=== PATIENT | male | born 1975 | race Caucasian/White ===

== ENCOUNTER 2016-08-29 12:25 | Outpatient (CLI) | payer MEDICARE ==
[2016-08-29 12:37] LABS: Hemoglobin 11.8 gm/dl (11.8-15.2); Mean Corpuscular HGB Conc 34 % (32-34); Mean Corpuscular Hemoglobin 29 pg (28-32); Mean Corpuscular Volume 85 fl (84-94); Platelet Count 108 K/mm3 (140-440); Red Cell Distribution Width 13.7 % (13.2-15.2); White Blood Count 6.3 K/mm3 (4.5-11.0)
[2016-08-29 13:02] LABS: Albumin 2.9 g/dL (3.9-5); BUN/Creatinine Ratio 16.77; Calcium 8.2 mg/dL (8.4-10.2); Chloride 98.7 mmol/L (98-107); Phosphorous 4.2 mg/dL (2.5-4.5); Potassium 4.8 mmol/L (3.6-5.0)
[2016-08-29 13:04] LABS: Bilirubin,Urine NEG (Negative); Blood,Urine SM (Negative); Ketones,Urine NEG (Negative); Leukocyte Esterase,Urine NEG (Negative); Mucus,Urine FEW /HPF; Nitrite,Urine NEG (Negative); Urobilinogen,Urine < 2.0 mg/dL (<2.0)
[2016-08-29 13:22] LABS: Protein,Urine >500 mg/dL (Negative)
[2016-08-31 16:29] LABS: Vitamin D, 25-OH, Total 6 ng/mL (30-100)
[2016-09-01 10:14] LABS: Vitamin D, 25-OH, D2 SEE SCANNED RESULT
== END 2016-08-29 12:26 | disposition home or self-care (01) ==
LOC: LAB 12:25
PROVIDERS: ATTEND Internal Medicine Nephrology
DX: N18.4 Chronic kidney disease, stage 4 (severe) (principal)
CPT/HCPCS: 36415; 80048; 81001; 82040; 82306; 82570; 83970; 84100; 84156; 85027

== ENCOUNTER 2016-11-24 12:56 | Outpatient (CLI) | payer MEDICARE ==
[2016-11-24 13:37] LABS: Albumin 2.7 g/dL (3.9-5); BUN/Creatinine Ratio 13.15; Calcium 8.2 mg/dL (8.4-10.2); Chloride 102.5 mmol/L (98-107); Phosphorous 4.2 mg/dL (2.5-4.5); Potassium 3.6 mmol/L (3.6-5.0); Uric Acid 11.1 mg/dL (3.5-7.6)
== END 2016-11-24 12:57 | disposition home or self-care (01) ==
LOC: LAB 12:56
PROVIDERS: ATTEND Internal Medicine Nephrology
DX: I12.9 Hypertensive chronic kidney disease with stage 1 through stage 4 chronic kidney disease, or unspecified chronic kidney disease (principal); N18.4 Chronic kidney disease, stage 4 (severe); E11.22 Type 2 diabetes mellitus with diabetic chronic kidney disease; E56.9 Vitamin deficiency, unspecified; R60.9 Edema, unspecified; E66.9 Obesity, unspecified; Z71.3 Dietary counseling and surveillance
CPT/HCPCS: 36415; 80048; 82040; 84100; 84550